=== PATIENT | female | born 1990 | race Asian ===

== ENCOUNTER 2024-09-09 12:15 | Outpatient (CLI) | payer BC | END 2024-09-09 12:16 | disposition home or self-care (01) | LOC: CSHRAD 12:15 | PROVIDERS: ATTEND Family Medicine | DX: M41.24 Other idiopathic scoliosis, thoracic region (principal); M25.562 Pain in left knee; M25.561 Pain in right knee; M17.0 Bilateral primary osteoarthritis of knee; M25.462 Effusion, left knee | CPT/HCPCS: 72081 ==